=== PATIENT | male | born 1990 | race Caucasian/White ===

== ENCOUNTER 2017-01-19 05:13 | Day surgery (SDC) | payer MEDICAID ==
[~2017-01-19] VITALS: Ht 182.9 cm; Wt 113.4 kg
--- NOTE | ~2017-01-19 | OP ---
PATIENT NAME: RENNY WAGONER MEDICAL RECORD: [id number] :86 LOCATION:D.OPS ADMISSION DATE: SURGEON: QUENTIN MUSTAFA MD DATE OF OPERATION: 01/19/2017 PREOPERATIVE DIAGNOSIS: Painful exostosis, medial aspect of the right medial femur. POSTOPERATIVE DIAGNOSIS: Painful exostosis, medial aspect of the right medial femur. PROCEDURE: Open excision of this large exostosis that measured approximately 2 x 2 cm. SURGEON: Quentin Mustafa MD. ANESTHESIA: General. INTRAOPERATIVE COMPLICATIONS: None. SUMMARY OF PATHOLOGIC FINDINGS: This did appear to be chondromatous-type lesion. It was excised in its entirety and sent for pathology. The edges of which are smoothened as to avoid any sharp bone edges. The leftover cortical defect was filled with bone wax to avoid excessive bleeding. OPERATIVE SUMMARY IN DETAIL: After obtaining the appropriate preoperative orthopedic surgery consent as well as anesthetic consultation, evaluation and clearance, the patient was brought to the operating room and placed on the operating table in supine position. After adequate general laryngeal mask was administered, tourniquet was placed about the proximal aspect of the right lower extremity. Right lower extremity was then prepped and draped in routine sterile fashion. The leg was elevated and exsanguinated, tourniquet inflated to 350 mmHg. An incision was made directly over the bump itself, taken down. A small incision was made by spreading the vastus medialis periosteum the osteochondral cap appearing appearing exostosis was taken down medially, laterally, superiorly and inferiorly. A single sharp osteotome was utilized to excise this. This was then sent for permanent specimen. Serial and sequential rongeur was done to smoothen the edges to be sure that there were no rough edges. Copious irrigation was then followed by bone wax filling of the area of cortical defect as it was very close to the metaphyseal region and had substantial amount of vasculature. Having completed this, the fascia over the vastus medialis was closed with #1 Vicryl followed by 2-0 Vicryl and skin ethel. Sterile dressings were applied. The patient was awakened, taken to recovery room in stable condition. All final needle and sponge counts were correct. TRANSINT:[id number] Voice Confirmation ID: [id number] DOCUMENT ID: [id number] OPERATIVE REPORT [id number] RENNY WAGONER MD, QUENTIN HERNANDEZ CC: [id number] DICTATION DATE: 01/19/17 1328 SUPERVISOR NUCLEAR MEDICINE: 01/19/17 1817 DEP SDC 01/19/17 [facility] [address] [id number]
[2017-01-19 11:42] VITALS: BP 116/56; Ht 182.9 cm; Wt 113.4 kg
[2017-01-19] MEDS ORDERED: HYDROCODONE-APA1 TAB PO (13:25)
--- NOTE | 2017-01-19 14:40 | NUR ---
PATIENT VERY ANXIOUS TO GO HOME, DISCHARGE INSTRUCTIONS REVIEWED WITH PATIENT AND MOTHER. PATIENT STATES UNDERSTANDING, STATES HAS CRUTCHES AT HOME. HAS DEMONSTRATED TO THIS NURSE ABILITY TO USE CRUTCHES. STATES UNDERSTANDING OF NEED TO KEEP WEIGHT OFF KNEE COMPLETELY UNTIL BLOCK WEARS OFF COMPLETELY AND KEEP KNEE IMMOBILIZER ON. DRESSED IN PERSONAL CLOTHING
--- NOTE | 2017-01-19 14:45 | NUR ---
DISCHARGED HOME VIA WHEELCHAIR TO PRIVATE VEHICLE WITH MOTHER
== END 2017-01-19 14:45 | disposition home or self-care (01) ==
LOC: D.OPS 05:13 → D.PAN 14:00 → D.OPS 14:00
DX: D16.21 Benign neoplasm of long bones of right lower limb (principal)

== ENCOUNTER → 2017-01-22 13:06 | Outpatient (CLI) | payer MEDICAID ==
[2017-01-19 11:42] VITALS: BMI 34.0
[~2017-01-22 13:06] MED LIST: HYDROCODONE-APA1 TAB PO
== END | disposition home or self-care (01) ==
LOC: D.MRI 13:00
DX: R22.32 Localized swelling, mass and lump, left upper limb (principal)

== ENCOUNTER → 2017-02-04 15:15 | Outpatient (CLI) | payer MEDICAID ==
[2017-01-19 11:42] VITALS: BMI 34.0
[~2017-02-04 15:15] MED LIST changes: +PERCOCET 10/3251 TA1 PO
== END | disposition home or self-care (01) ==
LOC: D.MRI 08:00
DX: M25.561 Pain in right knee (principal)

== ENCOUNTER 2017-02-19 10:15 | Day surgery (SDC) | payer MEDICAID ==
[~2017-02-19] VITALS: Ht 182.9 cm; Wt 99.8 kg
[~2017-02-19 10:15] MED LIST changes: -PERCOCET 10/3251 TA1 PO
[2017-02-19 11:05] VITALS: BP 125/75; Ht 182.9 cm; Wt 99.8 kg
[2017-02-19] MEDS ORDERED: PERCOCET 10/3251 TA1 PO (13:57)
--- NOTE | 2017-02-19 14:38 | NUR ---
CAPILLARY REFILL LESS THAN THREE SECONDS IN LEFT HAND. BRACHIAL PULSE LEFT ARM PALPABLE AND REGULAR.
--- NOTE | 2017-04-02 14:01 | OP ---
PATIENT NAME: RENNY WAGONER MEDICAL RECORD: [id number] :88 LOCATION:D.OPS ADMISSION DATE: SURGEON: QUENTIN MUSTAFA MD DATE OF OPERATION: 02/19/2017 DATE OF OPERATION: 02/19/2017 PREOPERATIVE DIAGNOSES: 1. De Quervain stenosing tenosynovitis of the left wrist. 2. Left trigger thumb. POSTOPERATIVE DIAGNOSES: 1. De Quervain stenosing tenosynovitis of the left wrist. 2. Left trigger thumb. PROCEDURE: 1. Release of the left de Quervain stenosing tenosynovitis. 2. Left trigger thumb release. SURGEON: Quentin Mustafa MD. ANESTHESIA: General. INTRAOPERATIVE COMPLICATIONS: None. SUMMARY OF PATHOLOGIC FINDINGS: The patient had attritional tearing of the tendons at both the wrist and thumb; however, neither had more than 5% attritional tearing. OPERATIVE SUMMARY IN DETAIL: After obtaining the appropriate preoperative orthopedic surgery consent as well as anesthetic consultation, evaluation and clearance, the patient was brought to the operating room and placed on the operating table in supine position. After general laryngeal mask was administered, tourniquet was placed about the proximal aspect of the patient's left lower extremity. Left lower extremity was then prepped and draped in routine sterile fashion. The arm was elevated and exsanguinated, tourniquet inflated to 250 mmHg. Attention was first turned to de Quervain's release, incision was made over the radial styloid, taken down to the level of the extensor compartment. It was incised where the patient was found to have a substantial synovitis as well as some attritional changes as noted above. Having completed this, the wound was irrigated and closed with 4-0 Prolene in running fashion. Attention was then turned to the trigger thumb. Small incision was made at the base of the trigger thumb. Dissection was carried down directly to the A1 david, which was incised in its entirety. The flexor tendon was inspected and found to have attritional changes, but no full thickness tearing. Likewise, the wound was irrigated and closed with 4-0 Prolene. Having completed this, sterile dressings were applied. Tourniquet was deflated. The patient was awakened, taken to recovery room in stable condition. All final needle and sponge counts were correct. TRANSINT:[id number] Voice Confirmation ID: [id number] DOCUMENT ID: [id number] OPERATIVE REPORT [id number] RENNY WAGONER MD, QUENTIN HERNANDEZ at 1401 CC: [id number] DICTATION DATE: 03/30/17 1636 ROOM SERVICE ATTENDANT: 03/30/17 2349 [facility] 02/19/17 [place] [id number] [place] [id number]
== END 2017-02-19 15:30 | disposition home or self-care (01) ==
LOC: D.OPS 10:15 → D.PAN 10:45 → D.OPS 12:45 → D.PAN 12:45 → D.OPS 15:30
DX: M65.312 Trigger thumb, left thumb (principal); F17.200 Nicotine dependence, unspecified, uncomplicated; Z01.812 Encounter for preprocedural laboratory examination